=== PATIENT | female | born 1955 | race Caucasian/White ===

== ENCOUNTER → 2022-12-20 09:11 | Outpatient (BNVA) | payer MEDICARE, SELFPAY | PROVIDERS: Visit Provider Nurse Practitioner Family | DX: L57.0 Actinic keratosis (principal); D22.5 Melanocytic nevi of trunk; L57.8 Other skin changes due to chronic exposure to nonionizing radiation; L81.4 Other melanin hyperpigmentation | CPT/HCPCS: 17000; 99213 ==

== ENCOUNTER → 2024-01-07 14:32 | Outpatient (BNVA) | payer MEDICARE, SELFPAY | PROVIDERS: Visit Provider Nurse Practitioner Family | DX: D22.5 Melanocytic nevi of trunk (principal); L57.8 Other skin changes due to chronic exposure to nonionizing radiation; L81.4 Other melanin hyperpigmentation; L82.1 Other seborrheic keratosis; L02.222 Furuncle of back [any part, except buttock and flank]; L72.0 Epidermal cyst; D48.5 Neoplasm of uncertain behavior of skin; L57.0 Actinic keratosis | CPT/HCPCS: 11102; 17000; 99213 ==

== ENCOUNTER → 2024-09-01 07:47 | Outpatient (BNVA) | payer MEDICARE, SELFPAY | PROVIDERS: Visit Provider Dermatology | DX: D48.5 Neoplasm of uncertain behavior of skin (principal); R23.8 Other skin changes; R20.8 Other disturbances of skin sensation | CPT/HCPCS: 11104 ==

== ENCOUNTER → 2024-11-29 08:42 | Outpatient (BNVA) | payer MEDICARE, SELFPAY | PROVIDERS: Visit Provider Nurse Practitioner Family | DX: L57.8 Other skin changes due to chronic exposure to nonionizing radiation (principal); L81.4 Other melanin hyperpigmentation; L82.1 Other seborrheic keratosis; D18.01 Hemangioma of skin and subcutaneous tissue; L57.0 Actinic keratosis | CPT/HCPCS: 17000; 99213 ==